=== PATIENT | female | born 1970 | race Caucasian/White ===

== ENCOUNTER 2019-12-20 11:22 | Emergency (ER) | payer BC, SELFPAY ==
[2019-12-20 12:20] VITALS: BP 122/80; PULSE 78; RESP 18; TEMP 36.6; O2SAT 99
--- NOTE | 2019-12-20 13:47 | ED.UPPEXIN ---
HPI - Extremity Injury (Upper) General Chief Complaint: Extremity Injury, Upper Stated Complaint: Right arm swollen Source: patient Mode of arrival: ambulatory Limitations: no limitations History of Present Illness HPI narrative: 49 y.o. on rivaroxaban developed aching in her left lateral forearm last PM. Pain at rest is dull, #2/10, when pressure is applied it's worse at #4-5/10. She was lifting a chair yesterday. Not sure if symptoms started before or after the exertion. This AM she has swelling, bruising and continued soreness of the arm which is made worse by full supination and wrist flexion. She denies numbness/in the right hand. She denies trauma or acute onset of pain. No bruising elsewhere. 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 C/o 2 -3 days of nasal congestion and sore throat. NO cough or SOB. Related Data Home Medications Medication Instructions Recorded Confirmed budesonide 3 mg PO DAILY 12/20/19 12/20/19 bupropion HCl 300 mg PO DAILY 12/20/19 12/20/19 clobetasol 1 applic TOPICAL BID 12/20/19 12/20/19 gabapentin 100 mg PO DAILY 12/20/19 12/20/19 montelukast 10 mg PO DAILY 12/20/19 12/20/19 prednisone 10 mg PO DAILY 12/20/19 12/20/19 progesterone micronized 100 mg PO DAILY 12/20/19 12/20/19 rivaroxaban [Xarelto] 20 mg PO DAILY 12/20/19 12/20/19 thyroid (pork) [Nature-Throid] 48.75 mg PO DAILY 12/20/19 12/20/19 valacyclovir 500 mg PO DAILY 12/20/19 12/20/19 Allergies Allergy/AdvReac Type Severity Reaction Status Date / Time codeine Allergy Intermediate Verified 08/04/13 10:00 metronidazole [Flagyl] Allergy Intermediate Verified 08/04/13 10:00 Review of Systems Constitutional: Constitutional: Denies chills, Reports fatigue, Denies fever(s) and Denies weakness ENT: Denies sinus pain Cardiovascular: Cardiovascular: Denies chest pain Respiratory: Respiratory: Denies cough and Denies dyspnea Gastrointestinal: Gastrointestinal: Denies abdominal pain, Denies diarrhea and Denies vomiting Genitourinary: Comments: intermittent dysuria Chronic hematuria Neurologic: Comments: no numbness of weakness right hand [facility] Past Medical History Medical History (Updated 12/20/19 @ 14:56 by Nimesh Yadav MD) Aplastic anemia PTLD (post-transplant lymphoproliferative disorder) Pulmonary embolus Surgical History Surgical History (Updated 12/20/19 @ 14:37 by Nimesh Yadav MD) H/O bone marrow transplant Social History Social History (Updated 12/20/19 @ 14:38 by Nimesh Yadav MD) Social History: 16 and 20 year old sons Smoking status: Never smoker Living arrangements: with family Exam Const: General: no acute distress Orientation/consciousness: patient oriented x3 HENMT: Face and sinus: no sinus tenderness Mouth: Yes moist mucous membranes Throat: posterior oropharynx normal Eyes: Conjunctivae: conjunctivae normal Neck: Neck: no lymphadenopathy Chest: Chest palpation & inspection: normal inspection of the chest Resp: Auscultation: clear to auscultation bilaterally Cardio: Rate: regular rate Rhythm: regular rhythm GI: GI Palp: Yes Soft to palpation, No Tenderness to palpation present (GI) and No Guarding due to palpation present (GI) : General: Yes no CVA tenderness Skin: General skin exam: normal color Rashes: no rashes Neuro: General: patient oriented x3 and moves all extremities Other: Light touch sensation right hand intact. Extrem: Other: Swollen right forearm. Streak of ecchymosis from the medial prox. forearm to the flexor wrist crease. Tender over the middle 1/2 of the ulna. No warmth or redness. 5+ strength with biceps/triceps/wrist flexion and extension against resistance but pain with resisted flex/extension and passivel flexion/extension. brisk cap. refill of fingertips. Psych: Mental Status: mental status grossly normal Course Course Emergency
[2019-12-20 13:55] LABS: Hematocrit 42.8 % (35.0-49.0); Hemoglobin 14.2 g/dL (12.0-15.0); Mean Corpuscular HGB Conc 33.2 g/dL (32.0-36.0); Mean Corpuscular Hemoglobin 32.2 pg (27.0-31.0); Mean Corpuscular Volume 97.1 fL (78.0-102.0); Mean Platelet Volume 9.5 fl (9.2-11.8); Platelet Count Result 374 K/mm3 (150-420); Red Blood Count 4.41 M/mm3 (4.20-5.40); Red Cell Distribution Width 16.7 % (11.6-14.4); White Blood Count 12.6 K/mm3 (4.8-10.8)
[2019-12-20 14:03] LABS: Anion Gap 15.5 mmol/L (7-16); Blood Urea Nitrogen 15 mg/dL (7-18); Calcium 8.4 mg/dL (8.5-10.1); Carbon Dioxide 26 mmol/L (21-32); Chloride 103 mmol/L (98-108); Estimated CRCL calculation 59 ml/min; Estimated Glomerular Filt Rate > 60; Glucose 97 mg/dL (70-99); Osmolality Calculated 290 mOsm/kg (285-295); Potassium 4.5 mmol/L (3.5-5.1); Sodium 140 mmol/L (136-145)
[2019-12-20 14:31] LABS: Appearance Urine Sl Cloudy (Clear); Bilirubin Urine Negative (Negative); Color Urine Straw (Yellow); Glucose Urine UA Negative (Negative); Ketones Urine 1+ (Negative); Leukocyte Esterase Ur 3+ (Negative); Nitrate Urine Negative (Negative); Protein Urine Negative (Negative); Specific Grav Ur 1.015 (1.010-1.020); Urobilinogen Urine 0.2 mg/dL (0.2-1.0)
[2019-12-20 14:35] LABS: Add Urine Microscopic? YES; Bacteria Urine 1+ /hpf; Blood Urine Trace-Intact (Negative); RBC Urine None seen /hpf (0-2); Renal Epithelial Cells Urine Many /hpf; Squamous Epithelial Cell Urine Few /hpf (Few)
[2019-12-20 15:13] VITALS: RESP 16; O2SAT 100
== END 2019-12-20 15:14 | disposition home or self-care (01) ==
PROVIDERS: Emergency Provider Family Medicine
DX: R58 Hemorrhage, not elsewhere classified (principal); D69.9 Hemorrhagic condition, unspecified
CPT/HCPCS: 36415; 80048; 81001; 85027; 87077; 87086; 87088; 87186; 99282; 99283

== ENCOUNTER 2020-01-29 09:10 | Outpatient (CLI) | payer BC, SELFPAY ==
[2020-01-29 09:45] LABS: Basophils Absolute Auto 0.01 K/mm3 (0.00-0.10); Basophils Percent Auto 0.1 % (0.0-1.0); Eosinophils Absolute Auto 0.04 K/mm3 (0.02-0.50); Eosinophils Percent Auto 0.4 % (1.0-6.0); Hematocrit 41.9 % (35.0-49.0); Hemoglobin 13.8 g/dL (12.0-15.0); Immature Granulocyte Absolute 0.05 K/mm3 (0.00-0.00); Immature Granulocyte Percent A 0.5 % (0.0-0.0); Lymphocytes Absolute Auto 1.64 K/mm3 (1.10-4.50); Lymphocytes Percent Auto 17.9 % (18.0-42.0); Mean Corpuscular HGB Conc 32.9 g/dL (32.0-36.0); Mean Corpuscular Hemoglobin 32.2 pg (27.0-31.0); Mean Corpuscular Volume 97.9 fL (78.0-102.0); Monocytes Absolute Auto 0.63 K/mm3 (0.10-0.90); Monocytes Percent Auto 6.9 % (2.0-11.0); Neutrophils Absolute Auto 6.8 K/mm3 (1.7-7.2); Neutrophils Percent Auto 74.2 % (50.0-70.0); Platelet Count Result 323 K/mm3 (150-420); Red Blood Count 4.28 M/mm3 (4.20-5.40); Red Cell Distribution Width 15.5 % (11.6-14.4); White Blood Count 9.2 K/mm3 (4.8-10.8)
[2020-01-29 09:56] LABS: Alanine Aminotransferase 26 U/L (14-59); Albumin Level 3.8 g/dL (3.4-5.0); Alkaline Phosphatase 77 U/L (46-116); Anion Gap 13.2 mmol/L (7-16); Aspartate Amino Transferase 22 U/L (15-37); Bilirubin,Total 0.4 mg/dL (0.00-1.00); Blood Urea Nitrogen 13 mg/dL (7-18); Calcium 8.1 mg/dL (8.5-10.1); Carbon Dioxide 26 mmol/L (21-32); Chloride 103 mmol/L (98-108); Estimated Glomerular Filt Rate > 60; Glucose 105 mg/dL (70-99); Lactate Dehydrogenase 230 U/L (81-234); Osmolality Calculated 286 mOsm/kg (285-295); Potassium 4.2 mmol/L (3.5-5.1); Sodium 138 mmol/L (136-145); Total Protein 6.3 g/dL (6.4-8.2)
[2020-01-29] MEDS: HEPARIN SOD FLUSH 500 UNITS/5 ML SYRINGE IV PUSH (10:46)
== END 2020-01-29 09:11 | disposition home or self-care (01) ==
PROVIDERS: PCP Family Medicine
DX: Z45.2 Encounter for adjustment and management of vascular access device (principal)
CPT/HCPCS: 36415; 80053; 83615; 85025

== ENCOUNTER 2020-03-09 09:23 | Outpatient (CLI) | payer BC, SELFPAY ==
[2020-03-09] MEDS: SALINE LOCK FLUSH 10 ML IV PUSH (09:50)
[2020-03-09] MEDS: HEPARIN SOD FLUSH 500 UNITS/5 ML SYRINGE IV PUSH (09:50)
--- NOTE | 2020-03-09 09:58 | PCDIET ---
PT TO ROOM 206AMB PER SELF. A&OX3. HAS NO QUESTIONS OR CONCERNS. LATERAL SIDE OF PORT IN LEFT CHEST ACCESSED PER PROTOCOL AND 20ML BLOOD REMOVED FOR BLOOD DRAW THEN FLUSHED WITH 500 UNITS OF HEPARIN. NEEDLE REMOVED, INTACT. BANDAID APPLIED. MEDIAL SIDE OF LEFT CHEST PORT ACCESSED AND FLUSHED PER PROTOCOL, NEEDLE REMOVED INTACT. BANDAID APPLIED. BOTH SITES WITHOUT REDNESS, EDEMA OR DRAINAGE. PT TOLERATED WELL. HAS NO COMPLAINTS. DISCHARGED TO HOME AMB PER SELF WITH FOLLOW UP APPT FOR 1 MONTH.
[2020-03-09 09:59] LABS: Basophils Absolute Auto 0.01 K/mm3 (0.00-0.10); Basophils Percent Auto 0.1 % (0.0-1.0); Eosinophils Absolute Auto 0.05 K/mm3 (0.02-0.50); Eosinophils Percent Auto 0.7 % (1.0-6.0); Hematocrit 43.3 % (35.0-49.0); Hemoglobin 14.5 g/dL (12.0-15.0); Immature Granulocyte Absolute 0.03 K/mm3 (0.00-0.00); Immature Granulocyte Percent A 0.4 % (0.0-0.0); Lymphocytes Absolute Auto 2.41 K/mm3 (1.10-4.50); Lymphocytes Percent Auto 31.6 % (18.0-42.0); Mean Corpuscular HGB Conc 33.5 g/dL (32.0-36.0); Mean Corpuscular Hemoglobin 32.4 pg (27.0-31.0); Mean Corpuscular Volume 96.7 fL (78.0-102.0); Mean Platelet Volume 9.9 fl (9.2-11.8); Monocytes Absolute Auto 0.84 K/mm3 (0.10-0.90); Neutrophils Absolute Auto 4.3 K/mm3 (1.7-7.2); Neutrophils Percent Auto 56.2 % (50.0-70.0); Platelet Count Result 284 K/mm3 (150-420); Red Blood Count 4.48 M/mm3 (4.20-5.40); Red Cell Distribution Width 15.5 % (11.6-14.4); White Blood Count 7.6 K/mm3 (4.8-10.8)
[2020-03-09 10:12] LABS: Alanine Aminotransferase 23 U/L (14-59); Albumin Level 3.6 g/dL (3.4-5.0); Alkaline Phosphatase 54 U/L (46-116); Anion Gap 12.7 mmol/L (7-16); Aspartate Amino Transferase 21 U/L (15-37); Bilirubin,Total 0.4 mg/dL (0.00-1.00); Blood Urea Nitrogen 12 mg/dL (7-18); Calcium 8.2 mg/dL (8.5-10.1); Carbon Dioxide 26 mmol/L (21-32); Chloride 104 mmol/L (98-108); Estimated Glomerular Filt Rate > 60; Glucose 102 mg/dL (70-99); Lactate Dehydrogenase 219 U/L (81-234); Osmolality Calculated 287 mOsm/kg (285-295); Potassium 3.7 mmol/L (3.5-5.1); Sodium 139 mmol/L (136-145); Total Protein 6.2 g/dL (6.4-8.2)
== END 2020-03-09 09:24 | disposition home or self-care (01) ==
PROVIDERS: PCP Family Medicine
DX: Z45.2 Encounter for adjustment and management of vascular access device (principal)
CPT/HCPCS: 36415; 80053; 83615; 85025; 96523

== ENCOUNTER 2020-04-05 10:14 | Outpatient (CLI) | payer BC, SELFPAY ==
[2020-04-05] MEDS: HEPARIN SOD FLUSH 500 UNITS/5 ML SYRINGE IV PUSH ×2 (10:43)
--- NOTE | 2020-04-05 10:44 | PC.NURSE ---
PATIENT HERE FOR MONTHLY PORT FLUSH TO HER DUAL PORTS ON LEFT SIDE CHEST. BLOOD WORK ALSO DRAWN ORDERED. PATIENT TOLERATED PORT DRAW AND FLUSH WELL. SAFE EXIT OF HOSPITAL.
[2020-04-05 10:53] LABS: Basophils Absolute Auto 0.01 K/mm3 (0.00-0.10); Basophils Percent Auto 0.1 % (0.0-1.0); Eosinophils Absolute Auto 0.06 K/mm3 (0.02-0.50); Eosinophils Percent Auto 0.6 % (1.0-6.0); Hematocrit 41.3 % (35.0-49.0); Hemoglobin 14.1 g/dL (12.0-15.0); Immature Granulocyte Absolute 0.04 K/mm3 (0.00-0.00); Immature Granulocyte Percent A 0.4 % (0.0-0.0); Lymphocytes Absolute Auto 2.31 K/mm3 (1.10-4.50); Lymphocytes Percent Auto 24.7 % (18.0-42.0); Mean Corpuscular HGB Conc 34.1 g/dL (32.0-36.0); Mean Corpuscular Hemoglobin 32.6 pg (27.0-31.0); Mean Corpuscular Volume 95.4 fL (78.0-102.0); Mean Platelet Volume 9.9 fl (9.2-11.8); Monocytes Absolute Auto 0.69 K/mm3 (0.10-0.90); Monocytes Percent Auto 7.4 % (2.0-11.0); Neutrophils Absolute Auto 6.3 K/mm3 (1.7-7.2); Neutrophils Percent Auto 66.8 % (50.0-70.0); Platelet Count Result 297 K/mm3 (150-420); Red Blood Count 4.33 M/mm3 (4.20-5.40); White Blood Count 9.4 K/mm3 (4.8-10.8)
[2020-04-05 11:05] LABS: Alanine Aminotransferase 27 U/L (14-59); Albumin Level 3.7 g/dL (3.4-5.0); Alkaline Phosphatase 48 U/L (46-116); Anion Gap 11.9 mmol/L (7-16); Aspartate Amino Transferase 23 U/L (15-37); Bilirubin,Total 0.4 mg/dL (0.00-1.00); Blood Urea Nitrogen 10 mg/dL (7-18); Calcium 8.4 mg/dL (8.5-10.1); Carbon Dioxide 28 mmol/L (21-32); Chloride 102 mmol/L (98-108); Estimated Glomerular Filt Rate > 60; Glucose 96 mg/dL (70-99); Lactate Dehydrogenase 230 U/L (81-234); Osmolality Calculated 285 mOsm/kg (285-295); Potassium 3.9 mmol/L (3.5-5.1); Sodium 138 mmol/L (136-145); Total Protein 6.2 g/dL (6.4-8.2)
== END 2020-04-05 10:15 | disposition home or self-care (01) ==
PROVIDERS: PCP Family Medicine
DX: Z45.2 Encounter for adjustment and management of vascular access device (principal)
CPT/HCPCS: 36415; 80053; 83615; 85025

== ENCOUNTER 2021-03-22 09:49 | Outpatient (CLI) | payer BC, SELFPAY ==
[2021-03-22 11:15] LABS: SARS-CoV-2 RNA PCR Negative (Negative)
== END 2021-03-22 09:50 | disposition home or self-care (01) ==
LOC: CHSLAB 09:55
PROVIDERS: PCP Family Medicine; Visit Provider Family Medicine
DX: R50.9 Fever, unspecified (principal)
CPT/HCPCS: C9803; U0003; U0005

== ENCOUNTER 2021-03-22 15:54 | Outpatient (CLI) | payer BC, SELFPAY ==
[2021-03-22 16:13] LABS: Basophils Absolute Auto 0.03 K/mm3 (0.00-0.10); Basophils Percent Auto 0.2 % (0.0-1.0); Hematocrit 43.9 % (35.0-49.0); Hemoglobin 14.9 g/dL (12.0-15.0); Immature Granulocyte Absolute 0.06 K/mm3 (0.00-0.00); Immature Granulocyte Percent A 0.4 % (0.0-0.0); Lymphocytes Absolute Auto 1.41 K/mm3 (1.10-4.50); Lymphocytes Percent Auto 10.1 % (18.0-42.0); Mean Corpuscular HGB Conc 33.9 g/dL (32.0-36.0); Mean Corpuscular Volume 103.1 fL (78.0-102.0); Mean Platelet Volume 9.8 fl (9.2-11.8); Monocytes Percent Auto 7.2 % (2.0-11.0); Neutrophils Absolute Auto 11.5 K/mm3 (1.7-7.2); Neutrophils Percent Auto 82.1 % (50.0-70.0); Platelet Count Result 327 K/mm3 (150-420); Red Blood Count 4.26 M/mm3 (4.20-5.40); Red Cell Distribution Width 14.3 % (11.6-14.4)
[2021-03-22 16:23] LABS: Add Urine Microscopic? YES; Appearance Urine Clear (Clear); Bilirubin Urine Negative (Negative); Blood Urine 3+ (Negative); Color Urine Yellow (Yellow); Glucose Urine UA Trace (Negative); Ketones Urine Negative (Negative); Leukocyte Esterase Ur 3+ LEU/UL (Negative); Nitrate Urine Negative (Negative); Protein Urine Negative (Negative); Specific Grav Ur <= 1.005 (1.010-1.020); Urobilinogen Urine 0.2 mg/dL (0.2-1.0); pH Urine 6.5 (5.0-8.0)
[2021-03-22 16:33] LABS: Bacteria Urine Trace /hpf; Squamous Epithelial Cell Urine Few /hpf (Few); WBC Urine 21-30 /hpf (0-3)
== END 2021-03-22 15:55 | disposition home or self-care (01) ==
LOC: CHSLAB 15:59
PROVIDERS: PCP Family Medicine
DX: R30.9 Painful micturition, unspecified (principal)
CPT/HCPCS: 36415; 81001; 85025; 87040; 87077; 87086; 87088; 87186

== ENCOUNTER 2021-05-12 10:30 | Outpatient (CLI) | payer BC, SELFPAY ==
[2021-05-12 11:40] LABS: SARS-CoV-2 RNA PCR Negative (Negative)
== END 2021-05-12 10:31 | disposition home or self-care (01) ==
LOC: CHSLAB 10:33
PROVIDERS: PCP Family Medicine; Visit Provider Family Medicine
DX: Z20.822 Contact with and (suspected) exposure to COVID-19 (principal)
CPT/HCPCS: C9803; U0003; U0005

== ENCOUNTER 2021-10-10 13:15 | Outpatient (CLI) | payer BC, SELFPAY ==
[2021-10-10 13:39] LABS: Add Urine Microscopic? YES; Bilirubin Urine Negative (Negative); Blood Urine 1+ (Negative); Color Urine Light Yellow (Yellow); Glucose Urine UA Negative (Negative); Ketones Urine Negative (Negative); Leukocyte Esterase Ur 3+ (Negative); Nitrate Urine Negative (Negative); Protein Urine Negative (Negative); Specific Grav Ur <= 1.005 (1.010-1.020); Urobilinogen Urine 0.2 mg/dL (0.2-1.0)
[2021-10-10 13:44] LABS: Appearance Urine Sl Cloudy (Clear); Bacteria Urine Trace /hpf; Squamous Epithelial Cell Urine Few /hpf (Few); WBC Urine 21-30 /hpf (0-3)
== END 2021-10-10 13:16 | disposition home or self-care (01) ==
LOC: CHSLAB 13:21
PROVIDERS: PCP Family Medicine
DX: R30.9 Painful micturition, unspecified (principal)
CPT/HCPCS: 81001; 87077; 87086; 87088; 87186

== ENCOUNTER 2022-07-25 08:33 | Outpatient (CLI) | payer BC, SELFPAY ==
[2022-07-25 09:30] LABS: SARS-CoV-2 RNA PCR Positive (Negative)
== END 2022-07-25 08:34 | disposition home or self-care (01) ==
PROVIDERS: PCP Nurse Practitioner Family; Visit Provider Nurse Practitioner Family
DX: U07.1 COVID-19 (principal)
CPT/HCPCS: C9803; U0003; U0005

== ENCOUNTER 2022-08-27 09:58 | Outpatient (RCR) | payer BC, SELFPAY ==
--- NOTE | 2022-08-27 13:03 | PTOPEVAL1 ---
Assessment and note entered by Lopez Fisher Evaluation Information Assessment Status Evaluation Diagnosis low back pain Onset 01/19/22 Subjective Information Pt. reports that she developed low back pain around spring of this year. She reports that she does have pain that will go down the right leg. Pt. reports that her pain is not constant. She was attempting some strength training which seemed to increase her pain. she states that walking seems to help ease her pain. She states that bending forward will increase her pain. she states that some days she has difficulty with finding a comfortable position. she reports that her goal is to reduce her back pain Reported Pain Level Pain Score 0: Self Report Assessment PT Clinical Summary Pt. is a 52 year old female who enters the clinic with low back pain. Pt. presentation is consistent with discogenic pain. she currently presents with core and l.e. weakness, impaired postural awareness and pain. continued treatment is indicated in order to improve these areas to allow the pt. to be able to complete all IADL's with improved comfort. Plan of Care Interventions Electrical Stimulation,Hot Pack/Cold Pack,Manual Therapy,Mechanical Traction,Neuro Re-education, Therapeutic Activities,Therapeutic Exercise PT Services Indicated Yes Treatment Frequency and 2x/week x 10 visits Duration These treatments will address the objective and functional deficits as defined above. The patient will be advanced safely and appropriately in order for the patient to progress towards his/her prior level of function. Additional exercises will be introduced and as well as a comprehensive home exercise program upon discharge, if needed, ?to ensure carryover of functional gains achieved in the clinic. This treatment plan has been reviewed and agreement upon by the patient.
--- NOTE | 2022-12-17 13:03 | PCPTNOTE ---
Pt. attended a total of 7 treatment sessions consisting of modality care for pain. manual techniques for pain and mobility and therapeutic exercise addressing mobility and core strength. She continued to present with fluctuating pain reports through the duration of treatment. She has failed to return to the clinic and will be discharged from our care.
== END 2022-10-10 23:59 | disposition home or self-care (01) ==
LOC: CHSPT 09:58
PROVIDERS: Visit Provider Nurse Practitioner Gerontology
DX: M54.50 Low back pain, unspecified (principal)
CPT/HCPCS: 97014; 97110; 97140; 97161; G0283

== ENCOUNTER 2022-09-27 11:16 | Outpatient (CLI) | payer BC, SELFPAY ==
[2022-09-27 11:41] LABS: Basophils Absolute Auto 0.02 K/mm3 (0.00-0.10); Basophils Percent Auto 0.2 % (0.0-1.0); Eosinophils Absolute Auto 0.07 K/mm3 (0.02-0.50); Eosinophils Percent Auto 0.6 % (1.0-6.0); Hematocrit 42.4 % (35.0-49.0); Hemoglobin 14.6 g/dL (12.0-15.0); Immature Granulocyte Absolute 0.04 K/mm3 (0.00-0.00); Immature Granulocyte Percent A 0.3 % (0.0-0.0); Lymphocytes Absolute Auto 2.93 K/mm3 (1.10-4.50); Lymphocytes Percent Auto 24.7 % (18.0-42.0); Mean Corpuscular HGB Conc 34.4 g/dL (32.0-36.0); Mean Corpuscular Volume 104.4 fL (78.0-102.0); Mean Platelet Volume 10.3 fl (9.2-11.8); Monocytes Absolute Auto 0.77 K/mm3 (0.10-0.90); Monocytes Percent Auto 6.5 % (2.0-11.0); Neutrophils Percent Auto 67.7 % (50.0-70.0); Platelet Count Result 301 K/mm3 (150-420); Red Blood Count 4.06 M/mm3 (4.20-5.40); Red Cell Distribution Width 14.4 % (11.6-14.4); White Blood Count 11.9 K/mm3 (4.8-10.8)
[2022-09-27 12:11] LABS: Alanine Aminotransferase 23 U/L (14-59); Albumin Level 3.9 g/dL (3.4-5.0); Alkaline Phosphatase 59 U/L (46-116); Anion Gap 10 mmol/L (8-16); Aspartate Amino Transferase 21 U/L (15-37); Bilirubin,Total 0.6 mg/dL (0.00-1.00); Blood Urea Nitrogen 14 mg/dL (7-18); Calcium 8.6 mg/dL (8.5-10.1); Carbon Dioxide 27 mmol/L (21-32); Chloride 103 mmol/L (98-108); Estimated Glomerular Filt Rate 54; Glucose 70 mg/dL (70-99); Lactate Dehydrogenase 223 U/L (81-234); Osmolality Calculated 288 mOsm/kg (285-295); Potassium 4.5 mmol/L (3.5-5.1); Sodium 140 mmol/L (136-145); Total Protein 6.7 g/dL (6.4-8.2)
[2022-09-27 16:39] LABS: Appearance Urine Clear (Clear); Bilirubin Urine Negative (Negative); Blood Urine 3+ (Negative); Glucose Urine UA Negative (Negative); Ketones Urine Negative (Negative); Leukocyte Esterase Ur 2+ LEU/UL (Negative); Nitrate Urine Negative (Negative); Protein Urine Negative (Negative); Urobilinogen Urine 0.2 mg/dL (0.2-1.0)
[2022-09-27 16:45] LABS: Add Urine Microscopic? YES; Bacteria Urine Trace /hpf; Color Urine Yellow (Yellow); Squamous Epithelial Cell Urine Few /hpf (Few); WBC Urine 16-20 /hpf (0-3)
== END 2022-09-27 11:17 | disposition home or self-care (01) ==
DX: N34.2 Other urethritis (principal); D61.9 Aplastic anemia, unspecified; Z94.81 Bone marrow transplant status
CPT/HCPCS: 36415; 80053; 81001; 83615; 85025; 87077; 87086; 87088; 87186; 87497

== ENCOUNTER 2023-08-01 14:57 | Outpatient (NON) | payer BC, SELFPAY ==
[2023-08-01 15:09] LABS: Bilirubin Urine Negative (Negative); Blood Urine 1+ (Negative); Color Urine Yellow (Yellow); Glucose Urine UA Negative (Negative); Ketones Urine Negative (Negative); Leukocyte Esterase Ur 3+ LEU/UL (Negative); Nitrate Urine Negative (Negative); Protein Urine Negative (Negative); Urobilinogen Urine 0.2 mg/dL (0.2-1.0); pH Urine 7.5 (5.0-8.0)
[2023-08-01 15:29] LABS: Add Urine Microscopic? YES; Appearance Urine Slightly Cloudy (Clear); Bacteria Urine 2+ /hpf; Squamous Epithelial Cell Urine Rare /hpf (Few); WBC Urine >75 /hpf (0-3)
== END 2023-08-01 14:58 | disposition home or self-care (01) ==
LOC: CHSLAB 14:59
PROVIDERS: Visit Provider Nurse Practitioner Family
DX: R39.9 Unspecified symptoms and signs involving the genitourinary system (principal)
CPT/HCPCS: 81001; 87077; 87086; 87088